=== PATIENT | male | born 1995 | race African-American/Black ===

== ENCOUNTER 2020-10-05 14:33 | Inpatient (IN) | payer OTHER ==
[~2020-10-05] VITALS: Ht 175.4 cm; Wt 69.3 kg
[2020-11-06] VITALS (10 sets, daily range): BP systolic 103–134; BP diastolic 62–90; PULSE 61–102; TEMP 97.5–98.6
--- NOTE | 2020-11-06 11:05 | NUR ---
Patient ambulated to bay 1 with steady gait and tolerate activity well. Vital signs obtained. Consent signed. Heart is regular. Lungs are clear. Bowel sounds audible. IV started with 2 attemps, 18G in left hand, infusing without difficult. Patient denies need to void. Bed rails up and call light within reach. Instructed patient to call for assistance. brought back to bedside to be with patient until surgery.
--- NOTE | 2020-11-06 17:45 | NUR ---
RECEIVED REPORT FROM PACU NURSE, RYAN NGUYEN. WAITING FOR PATIENT TO ARRIVE TO ROOM 350 POST OP.
--- NOTE | 2020-11-06 17:55 | NUR ---
PATIENT ARRIVE TO ROOM 350 VIA HOSPITAL WITH PACU NURSE PRESENT. PATIENT REPORTING MILD ABD DISCOMFORT. X5 LAP INCISION CDI WITH SURGICAL GLUE, NO DRAINAGE OBSERVED. PATIENT TOLERATING CHIPS OF ICE AT THIS TIME. STARK TO DD IN PLACE. DENIES CHEST PAIN/SOA AT THIS TIME. DENIES NAUSEA. DENIES NUMBNESS/TINGLING TO EXTREMITIES CURRENTLY. REPORTS THAT HE DOES NOT THINK HE COULD BE UP OUT OF BED DUE TO FEELING LIGHT HEADED AT THIS TIME.
--- NOTE | 2020-11-06 19:30 | NUR ---
CHANGE OF SHIFT REPORT TO NIGHT NURSE, REYMUNDO NGUYEN.
[2020-11-07] VITALS (7 sets, daily range): BP systolic 113–139; BP diastolic 56–81; PULSE 59–79; TEMP 97.6–98.9
--- NOTE | 2020-11-07 01:06 | NUR ---
PATIENT LYING IN BED RESTING COMFORTABLY. PATIENT DENIES NAUSEA. STARK TO DEPENDENT DRAINAGE WITH CLEAR YELLOW URINE WITH ADEQUATE URINE OUTPUT.
[2020-11-07 07:46] LABS: CALCIUM 9.1 mg/dL (8.4-10.2); CREATININE, serum 1.29 (0.66-1.25); POTASSIUM 3.8 mmol/L (3.4-5.0)
--- NOTE | 2020-11-07 10:08 | NUR ---
Initial visit; Patient and his thanked [employer] for looking in on him, offering encouragement and God's blessings. Patient was receptive to having [employer] keep him in her prayers.
--- NOTE | 2020-11-07 13:08 | NUR ---
The case management social worker met with the pt ( present)who stated his preference to return home with his , Eileen (ph# [phone]) once medically stable. The pt does not have any children. The pt is indendependent on all his ADLs and does not us any DME. The pt PCPis [facility] and recieves his medication from [facility] as well. Pt has no difficulties obtaining his meds. The pt informed the Sw that he does not have a DPOA-HC, and is not interested in one at this time. No other needs stated at this time. Sw to await further recommendations and follow up as needed. Discharge Plan: Home with , Eileen.
--- NOTE | 2020-11-07 18:33 | NUR ---
Patient resting in bedside recliner, at bedside. Kiser removed per order. Patient denies pain or needs, call light within reach.
--- NOTE | 2020-11-07 21:19 | NUR ---
Patient is alert, awake and cooperative. He went for walk with his slowly but he denied pain. They are expecting that he will go home tomorrow. stayed for the night. no complains noted. Call light given within reach. Continue to follow.
[2020-11-08 04:31] VITALS: BP 114/62; PULSE 56; TEMP 98.5
--- NOTE | 2020-11-08 06:01 | NUR ---
Patient slept all night without any concerns. He denies the need of PRN pain meds. He will be going home today.
[2020-11-08 08:00] VITALS: BP 134/81; PULSE 65; TEMP 98.8
--- NOTE | 2020-11-08 08:00 | NUR ---
PATIENT IS A&O. VSS. REPORTS PAIN IS MILD. GAVE SCHEDULED TYLENOL. ABD LAP SITES X5 ARE CD&I. HEAD TO TOE ASSESSMENT WNL. LEFT FORARM IV TO INT. PATIENT EAT/DRINK/VOIDING SUFFICENT AMOUNTS. NO C/O N/V. PATIENT PLANNING ON DISCHARGING HOME TODAY, SEE ORDERS.
[2020-11-08] MEDS ORDERED: NORCO 325 MG-51 TAB PO (08:20)
--- NOTE | 2020-11-08 10:10 | NUR ---
PATIENT DISCHARGING HOME VIA AMBULATORY TO PERSONAL VEHICLE WHERE IS WAITING. GAVE DISCHARGE INSTRUCTIONS, E-SCRIPT SENT, AND DISCUSSED F/U APT. ANSWERED QUESTIONS/CONCERNS. DC'D LEFT FORARM IV, COVERED SITE WITH [employer]. PATIENT DRESSED, PACKED, AND DISCHARGED HOME.
== END 2020-11-08 10:10 | disposition home or self-care (01) | DRG 661 ==
LOC: INPTSU 11-06 10:46 → SURG 11-06 13:00
PROVIDERS: ADMIT Urology
PROC: 8E0W4CZ Robotic Assisted Procedure of Trunk Region, Percutaneous Endoscopic Approach (ICD-10-PCS; 2020-11-06)
PROC: 0TT04ZZ Resection of Right Kidney, Percutaneous Endoscopic Approach (ICD-10-PCS; principal; 2020-11-06 13:00)
DX: N13.0 Hydronephrosis with ureteropelvic junction obstruction (principal)
CPT/HCPCS: A4314; J0330; J0690; J1170; J1885; J2250; J2370; J2405; J2704; J2710; J3010; J7120